=== PATIENT | male | born 1990 | race Two or more races ===

== ENCOUNTER 2018-04-13 03:49 | Emergency (ER) | payer SELFPAY ==
[~2018-04-13] VITALS: Ht 170.2 cm; Wt 130.0 kg
[2018-04-13] MEDS ORDERED: LIDOCAINE-MPF 1%, 5ML ONE (04:09)
[2018-04-13] MEDS ORDERED: LIDOCAINE-MPF 1%, 5ML INFIL ONE (04:30)
[2018-04-13 06:07] VITALS: BP 151/90
== END 2018-04-13 06:14 | disposition home or self-care (01) ==
LOC: EDBD 03:49 → ED 06:13
DX: S01.81XA Laceration without foreign body of other part of head, initial encounter (principal); X58.XXXA Exposure to other specified factors, initial encounter; Y93.89 Activity, other specified; Y92.89 Other specified places as the place of occurrence of the external cause; Y99.8 Other external cause status
CPT/HCPCS: 13151; 70480; 99285